=== PATIENT | female | born 2000 | race Two or more races ===

== ENCOUNTER 2021-11-18 01:56 | Outpatient (CLI) | payer OTHER | END 2021-11-18 01:57 | disposition EMS.NT | LOC: EMS 01:56 | DX: R11.2 Nausea with vomiting, unspecified (principal) ==

== ENCOUNTER 2022-12-12 19:33 | Outpatient (CLI) | payer OTHER ==
[2022-12-12 20:18] VITALS: BP 115/72
--- NOTE | 2022-12-12 21:25 | PROVIDER PROGRESS NOTE ---
- HPI Chief Complaint: Labor Current : Vital Signs Temperature 98.4 F 12/12/22 20:10 Heart Rate 65 12/12/22 20:10 Respiratory Rate 16 12/12/22 20:10 Blood Pressure 115/72 12/12/22 20:10 Temperature 98.4 F 12/12/22 20:10 Heart Rate 65 12/12/22 20:10 Respiratory Rate 16 12/12/22 20:10 Blood Pressure 115/72 12/12/22 20:10 O2 Saturation If not protocol: Oxygen Flow, liters/minute - Procedures Diagnosis/Indication for NST: labor Service Date of procedure: 12/12/22 - Plan Plan: 22yo at 22w presenting with abdominal pain radiating to vagina at times. Denies pressure. Tolerating regular diet. Denies nausea, vomiting, diarrhea. care at [facility] and uncomplicated per patient. Normal anatomy scan recently. Denies leaking fluid or bleeding or dysuria. NDKA Meds: PNV Med/Surg: denies Social: , denies aydin, at training, both AD Fam: noncontributory VSS GEN: Lying in bed, NAD CV: Regular rate Resp: Breathing unlabored Abd: soft, nt, no rebound or guarding Ext: nt FHR 150s SVE: closed/thick/long/high 22yo at 21w, false labor - labor precautions. Possible round ligament pain, expected discomforts of . Return precautions reviewed. - Follow up with OB at [facility] as scheduled
== END 2022-12-12 21:07 | disposition home or self-care (01) ==
LOC: WFO 19:33 → FBP 19:35 → WFO 21:07
PROVIDERS: ATTEND Obstetrics & Gynecology
DX: O47.02 False labor before 37 completed weeks of gestation, second trimester (principal); Z3A.21 21 weeks gestation of pregnancy
CPT/HCPCS: 99211

== ENCOUNTER 2023-10-23 08:00 | Outpatient (CLI) | payer OTHER | END 2023-10-23 23:59 | disposition home or self-care (01) | LOC: LAB.N 08:00 | PROVIDERS: ATTEND Physician Assistant | DX: R07.0 Pain in throat (principal) | CPT/HCPCS: 87070 ==